=== PATIENT | male | born 1945 | race Caucasian/White ===

== ENCOUNTER → 2016-07-05 | Outpatient (CLI) | payer BC, OTHER ==
[~2016-07-05] VITALS: Ht 175.3 cm; Wt 99.8 kg
[~2016-07-05] MED LIST: ESCITALOPRAM OX20 MG PO; FLOMAX0.4 MG PO; HYDROCHLOROTH12.5 M2 PO; HYOSCYAMINE0.375 M1 PO; LEVITRA20 MG PO; LIPITOR10 MG PO
--- NOTE | ~2016-07-05 | P ---
[facility] [place] [address] PROCEDURE REPORT Name: MIRELA VALDEZ [facility] [id number] Admission: 07/05/16 Attend Phys: Dominik Campa MD Discharge: Date of : 49 Report #: [id number] THIS REPORT FOR: //name// CC: Dominik James MD AMENDED REPORT - SEE BELOW BRIEF HISTORY: The patient is a 70-year-old male with a history of colon adenoma for surveillance exam. He has also had chronic diarrhea and previous biopsy in 2010 was nondiagnostic. PREOPERATIVE DIAGNOSES: History of colon polyps and chronic diarrhea. Family history of colon cancer, mother in upper 50s. POSTOPERATIVE DIAGNOSIS: Multiple colon polyps. MEDICATIONS: Deep sedation with propofol per anesthesia. SPECIMENS: 1. Colon polyps times 3, distal ascending colon. 2. Random biopsies: Rule out colitis. 3. Transverse colon polyp. 4. Splenic flexure polyp. 5. Proximal descending colon polyp. 6. Distal sigmoid polyp. ESTIMATED BLOOD LOSS: 3 mL. PROCEDURE: Colonoscopy to cecum and terminal ileum with snare polypectomy and biopsy. FINDINGS: Prior to propofol sedation, procedure of colonoscopy discussed with the patient as well as potential risks, benefits, and complications. He indicates he understands and desires to proceed. With the patient in left lateral decubitus position, digital examination was completed, which revealed no abnormalities. Subsequently, the [employer] video colonoscope was introduced into the rectum, advanced under direct vision to the cecum. Done with minimal difficulty. The cecum was identified by the ileocecal valve and the appendiceal orifice. I was able to visualize the distal segment of terminal ileum. With regard to his diarrhea, the ileal mucosa was completely normal. At that point, the scope was slowly withdrawn and careful circumferential views obtained including retroflexing the scope in the ascending colon. Upon slow withdrawal of the scope, the prep was noted to be excellent. The mucosa was normal limits, normal vascular pattern, and normal light reflex. In the distal ascending colon 3 polyps were identified, two were diminutive [address] [address] PROCEDURE REPORT Name: MIRELA VALDEZ Room #: REG [facility]#: [id number] Admission: 07/05/16 Attend Phys: Dominik Campa MD Discharge: Date of : 49 Report #: [id number] polyps and one was a 5-mm polyp on a stalk. The diminutive polyps were removed by biopsy. The polyp on a stalk was removed by cold snare polypectomy. As the scope was withdrawn, the mucosa was inspected. The prep was noted to be excellent. As we withdrew the scope, random biopsies were obtained to evaluate for microscopic colitis. Diminutive polyps were removed from the mid transverse colon, splenic flexure, proximal descending and the distal sigmoid. Otherwise, exam was unremarkable. With regard to his diarrhea, no abnormalities were seen. Scope was withdrawn in the rectum. Upon retroflexion, no abnormalities were seen. Scope was withdrawn. The patient tolerated the procedure well. CONDITION OF THE PATIENT UPON DISCHARGE: Following procedure, the patient drowsy and arousable. He will be discharged home when fully ambulatory. INSTRUCTIONS TO THE PATIENT AND FAMILY AT THE TIME OF DISCHARGE: The patient with finding of multiple polyps today. We will follow up on the pathology, make surveillance recommendations. In summary, if three or more polyps are adenomas, he should return in 3 years; otherwise, he should return in 5 years. We will follow up on the random biopsies with regard to microscopic colitis. He is taking a medicine for his diarrhea from Dr. James, he does not know the name of that medication. I asked him to call the office, so we can review and make further recommendations in regard to his diarrhea. If symptoms persistent, he should return to see me in followup in the office. He did complain of epigastric discomfort. He has had endoscopic evidence of esophagitis in the past and is not on any therapy at this time. We will have him institute a PPI and if symptoms do not resolve, upper endoscopy and even gallbladder evaluation may be consideration at a later date. If all his GI symptoms do not improve, he should return to see me in followup in the office. Last colonoscopy was more than 5 years ago. Withdrawal time from the cecum was 17 minutes. AMENDED - 07/06/16 REPORT ORIGINALLY E.SIGNED - 07/05/16 @ 1805 Report was edited to amend the preoperative diagnosis. By: [id number] Dominik Campa MD /duong
--- NOTE | ~2016-07-05 | S ---
[facility] [place] [address] SURGICAL PATH RPT PROCEDURE Name: JULIO VALDEZ Room #: REG [facility].#: [id number] Admission: 07/05/16 Date of : 49 Discharge: Report #: [id number] Path Case #: [id number] PATHOLOGY REPORT COLLECTION DATE: 07/05/2016 RECEIVED DATE: 07/05/2016 SUBMITTING PHYS: Dr. Dominik Campa OTHER PHYS: Dr. Reina James SPECIMEN(S) RECEIVED: A.Distal ascending colon-polyp x3 B.Colon random bx C.Mid transverse colon polyp D.Splenic flexure polyp E.Prox descending polyp F.Distal sigmoid polyp * * * * * * * * * * * * FINAL DIAGNOSIS: A. Colonic mucosa, "distal ascending colon-polyp x3: - Fragments of tubular adenomas. - There is no evidence of high grade dysplasia or malignancy. B. Colonic mucosa "random colon biopsies": - No obvious diagnostic changes. - There is no evidence of acute cryptitis, granulomas, adenomatous change or malignancy. C. Colonic mucosa "mid transverse colon polyp", biopsy: - Polypoid colonic mucosa consistent with early hyperplastic polyp. - There is no evidence of adenomatous change, high grade dysplasia or malignancy. D. Colonic mucosa "splenic flexure", biopsy: - Polypoid colonic mucosa consistent with early hyperplastic polyp. - There is no evidence of adenomatous change, high grade dysplasia or malignancy. E. Colonic mucosa "proximal descending", biopsy: - Tubular adenoma. - There is no evidence of high grade dysplasia or malignancy. F. Colonic mucosa "distal sigmoid", biopsy. - Tubular adenoma. - There is no evidence of high grade dysplasia or malignancy. (SHA:csd; d/t: 07/06/2016) PATHOLOGIST: Miguel A Kern M.D. REPORT ELECTRONICALLY SIGNED BY: Miguel A Kern M.D. DATE/TIME: 07/06/2016 12:33 * * * * * * * * * * * * [facility] [address] [place] [address] SURGICAL PATH RPT PROCEDURE Name: JULOI VALDEZ Room #: REG [facility]#: [id number] Admission: 07/05/16 Date of : 49 Discharge: Report #: [id number] Path Case #: [id number] GROSS PATHOLOGY: A. Received in formalin labeled "Julio Valdez, distal ascending," are 6 segments of chavez soft tissue measuring 0.6 x 0.5 x 0.2 cm in aggregate dimensions and ranging from 0.2 to 0.5 cm in maximum dimension. The specimen is submitted entirely in cassette A1. B. Received in formalin labeled "Julio Valdez colon random," are multiple (more than 10) segments of chavez soft tissue measuring 0.9 x 0.7 x 0.3 cm in aggregate dimensions and ranging from 0.2 to 0.6 cm in maximum dimension. The specimen is submitted entirely in cassette B1. C. Received in formalin labeled "Julio Valdez mid transverse," are 2 segments of chavez soft tissue measuring 0.4 x 0.3 x 0.2 cm in aggregate dimensions and ranging from 0.2 to 0.4 cm in maximum dimension. The specimen is submitted entirely in cassette C1. D. Received in formalin labeled "Julio Valdez, splenic flexure," is a segment of chavez soft tissue measuring 0.3 cm in maximum dimension. The specimen is submitted entirely in cassette D1. E. Received in formalin labeled "Julio Valdez, proximal descending," is a segment of chavez soft tissue measuring 0.5 cm in maximum dimension. The specimen is submitted entirely in cassette E1. F. Received in formalin labeled "Julio Valdez, distal sigmoid," is a segment of chavez soft tissue measuring 0.5 cm in maximum dimension. The specimen is submitted entirely in cassette F1. (KAH; 07/05/2016) CLINICAL HISTORY: History of polyps INITIAL CPT CODE(S): A; 30882 B; 70520 C; 89268 D; 17946 E; 09882 F; 49340 Professional services performed by [facility] at [facility] [address] [place] [address] Technical services performed by [facility] at [address] [place] [address], [address] [address]. [facility] [address] [place] [address] SURGICAL PATH RPT PROCEDURE Name: JULIO VALDEZ Room #: REG [facility]#: [id number] Admission: 07/05/16 Date of : 49 Discharge: Report #: [id number] Path Case #: [id number] [place] [address] PHONE: [phone] DIRECTOR: Ede Bro M.D. * * * END OF REPORT * * *
== END | disposition home or self-care (01) ==
LOC: GI 06:59
DX: D12.2 Benign neoplasm of ascending colon (principal); D12.4 Benign neoplasm of descending colon; D12.5 Benign neoplasm of sigmoid colon; K63.5 Polyp of colon; F32.9 Major depressive disorder, single episode, unspecified; E78.5 Hyperlipidemia, unspecified; Z98.890 Other specified postprocedural states
CPT/HCPCS: 62110; 62900